=== PATIENT | male | born 1995 | race Caucasian/White ===

== ENCOUNTER 2023-12-05 09:54 | Day surgery (SDC) | payer SELFPAY ==
[2023-12-05] MEDS ORDERED: CEFAZOLIN 2 GM-D5W BAG** 2 GM/50 ML ML IV ONE (10:41)
[2023-12-05] MEDS ORDERED: Lactated Ringers 1,000 ML IV ONE ×2 (10:42→13:28)
[2023-12-05 10:48] VITALS: RESP 18
[2023-12-05] MEDS: Lactated Ringers 1,000 ML IV SCH (10:59)
[2023-12-05] MEDS: CEFAZOLIN 2 GM-D5W BAG** 2 GM/50 ML ML IV SCH (10:59)
[2023-12-05] MEDS: Transderm Scop 1.5MG Patch TOP ONE (11:30)
[2023-12-05] MEDS ORDERED: ROCURONIUM BROMIDE IV ONE (11:43)
[2023-12-05] MEDS ORDERED: Zofran 4 MG/2 ML VIAL ONE (11:43)
[2023-12-05] MEDS ORDERED: Xylocaine-Mpf 2% 5 Ml Vial ONE (11:43)
[2023-12-05] MEDS ORDERED: TORAdol 30 mg Injection ONE (11:43)
[2023-12-05] MEDS ORDERED: Decadron 4 MG INJ ONE (11:43)
[2023-12-05] MEDS ORDERED: DIPRIVAN 200 MG/20 ML IV ONE (11:44)
[2023-12-05] MEDS ORDERED: SUBLIMAZE 100 MCG/2 ML ONE ×2 (11:44→13:46)
[2023-12-05] MEDS ORDERED: DEXMEDETOMIDINE 80 MCG/20ML-NS IV ONE (11:44)
[2023-12-05] MEDS ORDERED: Versed 2 MG/2 ML Injection ONE (11:44)
[2023-12-05] MEDS ORDERED: OFIRMEV 100 ML IV ONE (11:47)
[2023-12-05] MEDS ORDERED: Pre-Attached Lta Kit TP ONE (11:47)
[2023-12-05] MEDS ORDERED: BRIDION 200MG/2ML IV ONE (11:50)
[2023-12-05] MEDS ORDERED: Sensorcaine 0.25% 10 ML ONE (12:07)
[2023-12-05] MEDS ORDERED: ROBINUL ONE (12:31)
[2023-12-05] MEDS ORDERED: ATROPINE SULFATE 1MG ONE (13:01)
[2023-12-05] MEDS ORDERED: Narcan 0.4 MG/ML ONE (13:29)
[2023-12-05] MEDS ORDERED: Hydromorphone 1 mg/ml Injection ONE (13:46)
--- NOTE | 2023-12-05 14:08 | OP ---
SURGERY DATE/TIME: 12/05/2023 1221 PREOPERATIVE DIAGNOSIS: Umbilical hernia. POSTOPERATIVE DIAGNOSIS: Umbilical hernia. PROCEDURE: Primary repair of umbilical hernia defect measuring 1 cm. SURGEON: Vipul Mireles M.D. ANESTHESIA: General. QUANTITATIVE BLOOD LOSS: Minimal. PATIENT CONDITION: Stable. COMPLICATIONS: None. SPECIMEN: None. HISTORY: The patient is a 28-year-old male presents with reducible symptomatic umbilical hernia. Discussed with the patient the risk of infection, bleeding, injury to nearby structures, hernia recurrence, subcu pain chronic. He does elect to proceed with primary repair at this point. FINDINGS: A 1 cm defect primary repair with Prolene. DESCRIPTION OF PROCEDURE: The patient was brought to operating room. General anesthesia induced. Routinely positioned. Prepped and draped. Time out performed. He received preoperative antibiotic. The infraumbilical curvilinear incision was made. The stalk is isolated out. The stalk is dissected off. The hernia sac and stalk mobilized off. The hernia contains preperitoneal fat which is unable to be reduced that is then excised that is nice and hemostatic. The fascial defect measures 1 cm in size closed with 0 Prolene interrupted sutures. The umbilical stalk tacked down with 3-0 Vicryl sutures. Marcaine had been injected. Skin deep dermal 3-0 Vicryl. Skin closed with 4-0 Vicryl sutures. Steri-Strips, umbilical sponge and sterile dressing applied. All counts correct. The patient tolerated the procedure well, plans for extubation.
[2023-12-05 14:58] VITALS: TEMP 96.5; O2SAT 100
[2023-12-05 15:24] VITALS: BP 123/92; PULSE 55
== END 2023-12-05 15:27 | disposition home or self-care (01) ==
LOC: SDC 09:54
PROVIDERS: ATTEND Surgery
DX: K42.9 Umbilical hernia without obstruction or gangrene (principal)
CPT/HCPCS: J0461; J0690; J1100; J1170; J1885; J2250; J2310; J2405; J2704; J3010; L0625; A9270-GY